=== PATIENT | female | born 1950 | race Two or more races ===

== ENCOUNTER 2018-01-10 12:49 | Emergency (ER) | payer OTHER ==
[~2018-01-10] VITALS: Ht 162.6 cm; Wt 72.6 kg
[2018-01-10] MEDS ORDERED: LOSARTAN-HCTZ1 EACH (13:15)
[2018-01-10] MEDS ORDERED: SYNTHROID50 MCG (13:15)
[2018-01-10] MEDS ORDERED: KETO10TA2 PO (14:42)
== END 2018-01-10 14:54 | disposition home or self-care (01) ==
LOC: ER 12:49
DX: S93.402A Sprain of unspecified ligament of left ankle, initial encounter (principal); W01.198A Fall on same level from slipping, tripping and stumbling with subsequent striking against other object, initial encounter; Y93.89 Activity, other specified; Y92.511 Restaurant or cafe as the place of occurrence of the external cause; Y99.8 Other external cause status

== ENCOUNTER 2019-06-19 17:44 | Emergency (ER) | payer OTHER ==
[~2019-06-19] VITALS: Ht 162.6 cm; Wt 74.8 kg
[~2019-06-19 17:44] MED LIST: KETO10TA2 PO; LOSARTAN-HCTZ1 EACH; SYNTHROID50 MCG
== END 2019-06-19 20:38 | disposition home or self-care (01) ==
LOC: ER 17:44
DX: S50.311A Abrasion of right elbow, initial encounter (principal); S60.512A Abrasion of left hand, initial encounter; S60.511A Abrasion of right hand, initial encounter; S80.211A Abrasion, right knee, initial encounter; S93.692A Other sprain of left foot, initial encounter; W01.198A Fall on same level from slipping, tripping and stumbling with subsequent striking against other object, initial encounter; Y93.01 Activity, walking, marching and hiking; Y92.59 Other trade areas as the place of occurrence of the external cause; Y99.8 Other external cause status